=== PATIENT | female | born 1945 | race Hispanic/Latino ===

== ENCOUNTER 2018-09-10 22:14 | Inpatient (IN) | payer MEDICARE, OTHER ==
[2018-09-10 22:20] VITALS: BMI 25.9
[2018-09-10] MEDS ORDERED: Iodixanol 320 MG/ML 100 ML BOTTLE IV ONE (22:27)
[2018-09-10 22:33] LABS: BASO # 0.1 K/uL (0.0-0.2); BASO % 0.7 % (0.0-2.0); EOS % 0.1 % (0.0-4.0); LYMPH # 2.2 K/uL (1.0-4.3); LYMPH % 15.2 % (20.0-40.0); MEAN CELL VOLUME 87.8 fL (81.0-99.0); MEAN CORPUSCULAR HEMOGLOBIN 29.8 pg (27.0-31.0); MEAN CORPUSCULAR HGB CONC 33.9 g/dL (33.0-37.0); MEAN PLATELET VOLUME 6.8 fL (7.2-11.7); MONO # 1.1 K/uL (0.0-0.8); MONO % 7.9 % (0.0-10.0); NEUT # 11.1 K/uL (1.8-7.0); NEUT % 76.1 % (50.0-75.0); RBC 4.71 Mil/uL (3.80-5.20); RED CELL DISTRIBUTION WIDTH 13.9 % (11.5-14.5); WHITE BLOOD COUNT 14.6 K/uL (4.8-10.8)
[2018-09-10 22:49] LABS: ALB/GLOB RATIO 1.5 (1.0-2.1); ALBUMIN 4.5 g/dL (3.5-5.0); ALT/SGPT 13 U/L (9-52); AST/SGOT 49 U/L (14-36); BLOOD UREA NITROGEN 18 mg/dL (7-17); CALCIUM 9.5 mg/dl (8.6-10.4); GFR NON-AFRICAN AMERICAN > 60; HDL CHOLESTEROL 54 mg/dL (30-70)
[2018-09-10 22:52] LABS: INR 1.2; PROTHROMBIN TIME 13.1 SECONDS (9.7-12.2)
[2018-09-10 23:00] LABS: LDL CHOLESTEROL 83 mg/dL (0-129)
[2018-09-10] MEDS ORDERED: Sodium Chloride 0.9% 1,000 ML ONE (23:14)
[2018-09-10] MEDS: Sodium Chloride 0.9% 1,000 ML IV SCH (23:22)
--- NOTE | 2018-09-10 23:37 | C.PDOC ---
History Of Present Illness 73 year old female came in as a code stroke. Patient lives at home alone, neighbor noticed she had slurred speech and aphasia, EMS was called. Patient is unable to give further Hx due to slurred speech and aphasia. She is able to move all her extremities, when asked if she has pain or other complaints she is able to shake her head no. Patient can say her name and say she is in [place] but still has slurred speech. Neighbor found her at 6:30-7pm but last well time is unknown. Patient has no Hx of stroke, use of blood thinners, or use of aspirin. Time Seen by Provider: 09/10/18 22:19 Chief Complaint (Nursing): Altered Mental Status History Per: EMS History/Exam Limitations: None Onset/Duration Of Symptoms: Unknown Onset Of Symptoms: Cannot Confirm Onset Current Symptoms Are (Timing): Still Present Usual Baseline: Alert Oriented Exacerbating Factor(s): Unknown Use Of Anticoag/Antiplatelets: No Speech Is: Slurred Past Medical History Reviewed: Historical Data, Nursing Documentation, Vital Signs Vital Signs: Last Vital Signs Temp 99.5 F 09/10/18 22:21 Pulse 104 H 09/10/18 22:53 Resp 20 09/10/18 22:53 BP 153/97 H 09/10/18 22:53 Pulse Ox 100 09/10/18 22:18 - Medical History PMH: Anxiety, Asthma, Depression, Gall Bladder Disease (cholecystectomy), Hypercholesterolemia, Schizophrenia Denies: Chronic Kidney Disease Surgical History: Cholecystectomy Family History: States: Unknown Family Hx - Social History Hx Alcohol Use: No Hx Substance Use: No - Immunization History Hx Tetanus Toxoid Vaccination: No Hx Influenza Vaccination: No Hx Pneumococcal Vaccination: No Review Of Systems Review Of Systems: ROS cannot be obtained secondary to pt's inabilty to answer questions. Physical Exam - Physical Exam Appears: Non-toxic Skin: Normal Color, Warm Head: Atraumatic, Normacephalic, Other (No facial droop) Eye(s): bilateral: Normal Inspection, PERRL, EOMI Oral Mucosa: Moist Neck: Normal, Supple Chest: Symmetrical, No Tenderness Cardiovascular: Rhythm Regular Respiratory: Normal Breath Sounds, No Rales, No Rhonchi, No Wheezing Gastrointestinal/Abdominal: Soft, No Tenderness Extremity: Other (Bilateral arms and legs with 5/5 strength, no drift.) Neurological/Psych: Other (Orientedx2, cannot say when it is but unsure if this is due to aphasia.) ED Course And Treatment - Laboratory Results Result Diagrams: 09/10/18 22:26 09/10/18 22:26 Lab Results: PT 13.1 SECONDS (9.7-12.2) H 09/10/18 22:26 INR 1.2 09/10/18 22: APTT 32 SECONDS (21-34) 09/10/18 22: Troponin I < 0.0120 ng/mL (0.00-0.120) 09/10/18 22: Total Bilirubin 0.8 mg/dL (0.2-1.3) 09/10/18 22: AST 49 U/L (14-36) H D 09/10/18 22: ALT 13 U/L (9-52) 09/10/18 22: Alkaline Phosphatase 91 U/L (38-126) 09/10/18 22:26 Total Protein 7.5 g/dL (6.3-8.3) 09/10/18 22: Albumin 4.5 g/dL (3.5-5.0) 09/10/18 22: Globulin 3.0 gm/dL (2.2-3.9) 09/10/18: Albumin/Globulin Ratio 1.5 (1.0-2.1) 09/10/18 22:26 ECG: Interpreted By [place] ECG Rhythm: Sinus Tachycardia Interpretation Of ECG: normal axis, normal intervals, no ST/T changes Rate From EC O2 Sat by Pulse Oximetry: 100 (Room air) Pulse Ox Interpretation: Normal - CT Scan/US CT Head Other Rad Studies (CT/US): Read By Radiologist, Radiology Report Reviewed CT/US Interpretation: EXAM: CT Head without Intravenous Contrast. CLINICAL HISTORY: Code stroke. TECHNIQUE: Axial computed tomography images of the head/brain without intravenous contrast. CONTRAST: Without. COMPARISON: None provided. FINDINGS: BRAIN. Chronic periventricular and subcortical microvascular disease is seen. Bilateral basal ganglia enlarged perivascular spaces. VENTRICLES: There is generalized parenchymal atrophy noted as demonstrated by symmetrical dilatation of ventricles and sulci. ORBITS: The orbits are unremarkable. SINUSES AND MASTOIDS: The paranasal sinuses and mastoid air cells are clear. BONES: No fracture. MISCELLANEOUS: No acute intracranial pathology. IMPRESSION: 1. There is generalized parenchymal atrophy noted as demonstrated by symmetrical dilatation of ventricles and sulci. 2. Chronic periventricular and subcortical microvascular disease is seen. 3. Bilateral basal ganglia enlarged perivascular spaces. 4. No acute intracranial pathology. Critical Care Time - Critical Care Note Total Time (in mins): 30 Documented critical care: time excludes all time spent performing seperately billable procedures. NIHSS Stroke Scale - Date/Time Evaluation Performed Time Performed: 22:15 When Was NIHSS Performed: Baseline - How Severe is the Stoke Level of Consciousness: 0=Alert LOC to Questions: 0=Both comments correct LOC to commands: 0=Obeys both correctly Best Gaze: 0=Normal Visual: 0=No visual loss Facial: 0=Normal Motor Arm - Left: 0=No drift Motor Arm - Right: 0=No drift Motor Leg - Left: 2=Falls before 5 sec Motor Leg - Right: 2=Falls before 5 sec Limb Ataxia: 0=Absent Sensory: 0=Normal Best Language: 2=Severe aphasia Dysarthia: 2=Severe, near unintelligible or worse Extinction & Inattention (Neglect): 0=Normal, no object Score: 8 Medical Decision Making Medical Decision Making: Plan: * CTA * CT Head * EKG * Blood work * CXR * Aspirin * IV fluids Patient called as a code stroke upon arrival. Patient evaluated and went immediately to CT. CT result noted. Case discussed with Dr. Boothe, neurologist salon stylist. Patient not a candidate for tPA given unknown last normal time. For now can give ASA and admit to telemetry. CTA performed as well, no vessel occlusion noted. ASA 300mg MO given. Case discussed with Dr. Mohan, medicine salon stylist. Accepts patient to his service. Case discussed with certified medical coding specialist. Disposition - Disposition Disposition: HOSPITALIZED Disposition Time: 00:30 Condition: FAIR - Clinical Impression Clinical Impression: CVA (cerebral vascular accident), Aphasia - Scribe Statement The provider has reviewed the documentation as recorded by the Scribanabelle Moya All medical record entries made by the Scribe were at my direction and personally dictated by me. I have reviewed the chart and agree that the record accurately reflects my personal performance of the history, physical exam, medical decision making, and the department course for this patient. I have also personally directed, reviewed, and agree with the discharge instructions and disposition.
--- NOTE | 2018-09-11 00:46 | CP.PCM.HP ---
History of Present Illness - History of Present Illness History of Present Illness: cc: "slurred speech" Patient is a 73 year old female with a PMH hypertension, hyperlipidemia, asthma, schizophrenia, anxiety, depression, NPH dementia presents today for Code stroke with slurred speech. Her last known normal was two days ago. Neighbor who comes to check on her noticed today her speech was slurred and she was having generalized weakness. She is able to move all extremities and nods/shakes her head appropriately to yes/no questions. Denies pain, history of stroke, use of blood thinners. She can understandably state her name and location, but has difficulty enunciating words greater than 3 syllables. She remembers eating dinner around 5 with no difficulty. Friend discovered her around 7:30pm. PMH: HTN, HLD, asthma, schizophrenia, anxiety, depression, NPH dementia Med: Cogentin 2mg po daily, Ativan 0.5mg po daily, Olanzapine 10mg po daily, Respiridone 2mg po daily, Simvastatin 10mg po QD6 All: NKDA PSxHx: Cholecystectomy, C/section, L cataract removal FamHx: unknown SocHx: denies tobacco, alcohol, illicit drug use. Lives with sister. Worked as a [employer] Present on Admission - Present on Admission Any Indicators Present on Admission: No Review of Systems - Constitutional Constitutional: absent: Chills, Fever, Headache, Weight Gain, Weight Loss, Weakness - EENT Eyes: absent: Blurred Vision, Change in Vision, Diplopia Ears: absent: Decreased Hearing, Tinnitus, Dizziness Nose/Mouth/Throat: absent: Sore Throat - Cardiovascular Cardiovascular: absent: Chest Pain - Respiratory Respiratory: absent: Cough, Dyspnea, Wheezing - Gastrointestinal Gastrointestinal: absent: Abdominal Pain, Constipation, Diarrhea, Nausea, Vomiting - Genitourinary Genitourinary: absent: Dysuria, Urinary Frequency, Urinary Urgency - Integumentary Integumentary: absent: Rash Past Patient History - Infectious Disease Hx of Infectious Diseases: None - Past Medical History & Family History Past Medical History?: Yes - Past Social History Smoking Status: Never Smoked Alcohol: None Drugs: Denies Home Situation {Lives}: With Family - CARDIAC Hx Hypercholesterolemia: Yes - PULMONARY Hx Asthma: Yes - NEUROLOGICAL Hx Neurological Disorder: Yes Hx Dizziness: Yes Hx Syncope: Yes - HEENT Hx HEENT Problems: Yes Hx Cataracts: Yes (right and left eye) - RENAL Hx Chronic Kidney Disease: No - ENDOCRINE/METABOLIC Hx Endocrine Disorders: No - HEMATOLOGICAL/ONCOLOGICAL Hx Blood Disorders: No - INTEGUMENTARY Hx Dermatological Problems: No - MUSCULOSKELETAL/RHEUMATOLOGICAL Hx Musculoskeletal Disorders: No - GASTROINTESTINAL Hx Gall Bladder Disease: Yes (cholecystectomy) - GENITOURINARY/GYNECOLOGICAL Hx Genitourinary Disorders: No - PSYCHIATRIC Hx Anxiety: Yes Hx Depression: Yes Hx Schizophrenia: Yes Hx Substance Use: No - SURGICAL HISTORY Hx Cholecystectomy: Yes - ANESTHESIA Hx Anesthesia: Yes Hx Anesthesia Reactions: No Meds Allergies/Adverse Reactions: Allergies Allergy/AdvReac Type Severity Reaction Status Date / Time No Known Allergies Allergy Verified 09/10/18 22:21 Physical Exam - Constitutional Appears: Well, No Acute Distress - Head Exam Head Exam: ATRAUMATIC, NORMOCEPHALIC - Eye Exam Eye Exam: EOMI, Normal appearance, PERRL Pupil Exam: NORMAL ACCOMODATION - ENT Exam ENT Exam: Mucous Membranes Moist Additional comments: slight facial droop on L side - Neck Exam Neck exam: Positive for: Normal Inspection - Respiratory Exam Respiratory Exam: Clear to Auscultation Bilateral, NORMAL BREATHING PATTERN. absent: Rales, Rhonchi, Wheezes - Cardiovascular Exam Cardiovascular Exam: Tachycardia, +S1, +S2 - GI/Abdominal Exam GI & Abdominal Exam: Normal Bowel Sounds, Soft. absent: Tenderness - Extremities Exam Extremities exam: Positive for: normal capillary refill, pedal pulses present. Negative for: joint swelling - Back Exam Back exam: absent: CVA tenderness (L), CVA tenderness (R) - Neurological Exam Neurological exam: Alert, Oriented x3 Additional comments: hyperreflexia muscle strength weaker on R facial drooping - Psychiatric Exam Psychiatric exam: Anxious - Skin Skin Exam: Dry, Normal Color, Warm Results - Vital Signs Recent Vital Signs: Last Vital Signs Temp 99.5 F 09/10/18 22:21 Pulse 96 H 09/11/18 00:36 Resp 15 09/11/18 00:36 BP 142/82 09/11/18 00:36 Pulse Ox 99 09/11/18 00:36 - Labs Result Diagrams: 09/11/18 04:02 09/11/18 04:02 Labs: Laboratory Results - last 24 hr 09/10/18 09/10/18 09/10/18 22:17 22:26 22:26 WBC 14.6 H RBC 4.71 Hgb 14.0 Hct 41.3 MCV 87.8 MCH 29.8 MCHC 33.9 RDW 13.9 Plt Count 391 MPV 6.8 L Neut % (Auto) 76.1 H Lymph % (Auto) 15.2 L Roberts % (Auto) 7.9 Eos % (Auto) 0.1 Baso % (Auto) 0.7 Neut # (Auto) 11.1 H Lymph # (Auto) 2.2 Roberts # (Auto) 1.1 H Eos # (Auto) 0.0 Baso # (Auto) 0.1 PT 13.1 H INR 1.2 APTT 32 Sodium Potassium Chloride Carbon Dioxide Anion Gap BUN Creatinine Est GFR ( Amer) Est GFR (Non-Af Amer) POC Glucose (mg/dL) 129 H Random Glucose Hemoglobin A1c Calcium Total Bilirubin AST ALT Alkaline Phosphatase Troponin I Total Protein Albumin Globulin Albumin/Globulin Ratio Triglycerides Cholesterol LDL Cholesterol Direct HDL Cholesterol Blood Type Antibody Screen 09/10/18 09/10/18 09/10/18 22:26 22:26 22:26 WBC RBC Hgb Hct MCV MCH MCHC RDW Plt Count MPV Neut % (Auto) Lymph % (Auto) Roberts % (Auto) Eos % (Auto) Baso % (Auto) Neut # (Auto) Lymph # (Auto) Roberts # (Auto) Eos # (Auto) Baso # (Auto) PT INR APTT Sodium 127 L Potassium 3.3 L Chloride 95 L Carbon Dioxide 20 L Anion Gap 16 BUN 18 H Creatinine 0.7 Est GFR ( Amer) > 60 Est GFR (Non-Af Amer) > 60 POC Glucose (mg/dL) Random Glucose 130 H Hemoglobin A1c 6.0 Calcium 9.5 Total Bilirubin 0.8 AST 49 H D ALT 13 Alkaline Phosphatase 91 Troponin I < 0.0120 Total Protein 7.5 Albumin 4.5 Globulin 3.0 Albumin/Globulin Ratio 1.5 Triglycerides 100 Cholesterol 155 LDL Cholesterol Direct 83 HDL Cholesterol 54 Blood Type O NEGATIVE Antibody Screen Negative Assessment & Plan - Assessment and Plan (Free Text) Assessment: 73yo F PMH HTN, HLD, asthma, schizophrenia, anxiety, depression, NPH dementia admitted for sudden onset of slurred speech. Code Stroke called. Plan: Slurred Speech Code Stroke CXR (09/10): negative CT Head without contrast (09/10): negative CTA Head and Neck (09/10): pending read Patient is out of window for tPA - home Simvastatin 10mg -> Crestor 5mg po HS - ASA 300mg [place] daily - NS@100 - Neuro consulted: Dr. Boothe - help appreciated Dementia - home Cogentin 2mg po daily Schizophrenia Anxiety/Depression - home Olanzapine 10mg po daily - home Risperidone 2mg po daily - home Ativan held 2/2 AMS PPx - DVT: SCDs - PT/OT - swallow study prior to diet orders d/w Dr. Marques Saldaña PGY-1 - Date & Time Date: 09/11/18 Time: 01:00 NIHSS Stroke Scale - Date/Time Evaluation Performed Date Performed: 09/11/18 Time Performed: 01:00 - How Severe is the Stoke Level of Consciousness: 0=Alert LOC to Questions: 1=One correct LOC to commands: 0=Obeys both correctly Best Gaze: 0=Normal Visual: 0=No visual loss Facial: 0=Normal Motor Arm - Left: 0=No drift Motor Arm - Right: 0=No drift Motor Leg - Left: 0=No drift Motor Leg - Right: 0=No drift Limb Ataxia: 2=Present both Sensory: 0=Normal Best Language: 2=Severe aphasia Dysarthia: 1=Mild to moderate slurring Extinction & Inattention (Neglect): 0=Normal, no object Score: 6
[2018-09-11 04:06] LABS: BASO # 0.1 K/uL (0.0-0.2); BASO % 0.9 % (0.0-2.0); EOS % 0.1 % (0.0-4.0); HEMOGLOBIN 13.7 g/dL (11.0-16.0); LYMPH # 1.5 K/uL (1.0-4.3); LYMPH % 9.7 % (20.0-40.0); MEAN CELL VOLUME 88.1 fL (81.0-99.0); MEAN CORPUSCULAR HGB CONC 34.1 g/dL (33.0-37.0); MEAN PLATELET VOLUME 6.8 fL (7.2-11.7); MONO # 1.1 K/uL (0.0-0.8); MONO % 6.8 % (0.0-10.0); NEUT # 12.8 K/uL (1.8-7.0); NEUT % 82.5 % (50.0-75.0); PLATELET COUNT 369 K/uL (130-400); RBC 4.57 Mil/uL (3.80-5.20); RED CELL DISTRIBUTION WIDTH 13.6 % (11.5-14.5); WHITE BLOOD COUNT 15.5 K/uL (4.8-10.8)
[2018-09-11 05:10] VITALS: RESP 20
[2018-09-11 05:36] LABS: LYMPHOCYTE 10 % (20-40); MONOCYTE 3 % (0-10); NEUTROPHIL 87 % (50-75); TOTAL CELLS COUNTED 100
[2018-09-11 05:37] LABS: PLATELET ESTIMATE NORMAL (NORMAL)
[2018-09-11 06:16] LABS: ALB/GLOB RATIO 1.4 (1.0-2.1); ALBUMIN 4.1 g/dL (3.5-5.0); ALT/SGPT 26 U/L (9-52); AST/SGOT 33 U/L (14-36); BLOOD UREA NITROGEN 13 mg/dL (7-17); GFR NON-AFRICAN AMERICAN > 60
[2018-09-11] MEDS: Sodium Chloride 0.9% 1,000 ML IV SCH ×3 (08:44→19:00)
--- NOTE | 2018-09-11 09:08 | CT ---
Date of service: 09/10/2018 PROCEDURE: CT HEAD WITHOUT CONTRAST. HISTORY: Code Stroke COMPARISON: None available. TECHNIQUE: Axial computed tomography images were obtained through the head/brain without intravenous contrast. Radiation dose: Total exam DLP = 1154.64 mGy-cm. This CT exam was performed using one or more of the following dose reduction techniques: Automated exposure control, adjustment of the mA and/or kV according to patient size, and/or use of iterative reconstruction technique. FINDINGS: HEMORRHAGE: No intracranial hemorrhage. BRAIN: No mass effect or edema. Central greater than peripheral atrophy consistent with patient age. VENTRICLES: Minimal ex vacuo ventricular dilatation secondary to surrounding parenchymal atrophy. CALVARIUM: Unremarkable. PARANASAL SINUSES: Unremarkable as visualized. No significant inflammatory changes. MASTOID AIR CELLS: Unremarkable as visualized. No inflammatory changes. OTHER FINDINGS: None. IMPRESSION: No intracranial mass, hemorrhage or evidence of acute infarct. Mild atrophy. Otherwise unremarkable. The preliminary findings for this examination were reported by [facility] at 10:41 p.m. on 09/10/2018. There is concurrence of this report with the preliminary findings.
--- NOTE | 2018-09-11 09:11 | CP.PCM.CON ---
History of Present Illness - History of Present Illness History of Present Illness: Sagar Matias DO, PGY-2: Neurology Consult Note for Dr. Boothe 73 year old female with a past medical history of normal pressure hydrocephalus, dyslipidemia, and an affective disorder who was brought in by EMS for slurred speech/aphasia noticed by the patient's neighbor around 6:45 PM yesterday. In the ED the patient scored an 8 on the NIH stroke scale. A code stroke was called and the case was discussed with the pathology secretary/transcriptionist Neurohospitalist who deferred the administration of tPA given the onset of the symptoms is unknown. A CT scan of the head was performed that showed no intracranial mass, hemorrhage or evidence of acute infarct. Mild atrophy. At the time of my examination this morning the patient has difficulty initiating speech and appears to have right sided weakness. She reports that the weakness of her right side has been present for over a year now. On a subsequent encounter the patient's close friend is present and brought the patient's home medications. Review of her medications reveals she was recently started on Sinemet for Parkinson's disease. The patient reports she is not taking this medication as prescribed. Otherwise, a 12 point ROS is negative except as mentioned above. PMH: hypertension, dyslipidemia, and parkinson's disease PSH: Denies Allergies: NKA Social: Lives at home, denies alcohol, tobacco, or illicit drug use Review of Systems - Review of Systems All systems: reviewed and no additional remarkable complaints except (as per HPI) Past Patient History - Infectious Disease Hx of Infectious Diseases: None - Past Medical History & Family History Past Medical History?: Yes - Past Social History Smoking Status: Never Smoked - CARDIAC Hx Hypercholesterolemia: Yes - PULMONARY Hx Asthma: Yes - NEUROLOGICAL Hx Neurological Disorder: Yes HX Cerebrovascular Accident: Yes Hx Dizziness: Yes Hx Syncope: Yes - HEENT Hx HEENT Problems: Yes Hx Cataracts: Yes (right and left eye) - RENAL Hx Chronic Kidney Disease: No - ENDOCRINE/METABOLIC Hx Endocrine Disorders: No - HEMATOLOGICAL/ONCOLOGICAL Hx Blood Disorders: No - INTEGUMENTARY Hx Dermatological Problems: No - MUSCULOSKELETAL/RHEUMATOLOGICAL Hx Musculoskeletal Disorders: No Hx Falls: Yes - GASTROINTESTINAL Hx Gall Bladder Disease: Yes (cholecystectomy) - GENITOURINARY/GYNECOLOGICAL Hx Genitourinary Disorders: No - PSYCHIATRIC Hx Anxiety: Yes Hx Depression: Yes Hx Schizophrenia: Yes Hx Substance Use: No - SURGICAL HISTORY Hx Cholecystectomy: Yes - ANESTHESIA Hx Anesthesia: Yes Hx Anesthesia Reactions: No Hx Malignant Hyperthermia: No Meds Allergies/Adverse Reactions: Allergies Allergy/AdvReac Type Severity Reaction Status Date / Time No Known Allergies Allergy Verified 09/10/18 22:21 - Medications Medications: Current Medications Aspirin (Aspirin Supp) 300 mg TX DAILY [facility] Last Admin: 09/10/18 23:25 Dose: 300 mg Benztropine Mesylate (Cogentin) 2 mg PO DAILY [facility] Sodium Chloride (Sodium Chloride 0.9%) 1,000 mls @ 100 mls/hr IV .Q10H [facility] Last Admin: 09/11/18 08:44 Dose: Not Given Olanzapine (Zyprexa) 10 mg PO DAILY [facility] Risperidone (Risperdal Tab) 2 mg PO DAILY [facility] Rosuvastatin Calcium (Crestor) 5 mg PO HS [facility] Physical Exam - Constitutional Appears: Non-toxic, No Acute Distress - Head Exam Head Exam: ATRAUMATIC, NORMOCEPHALIC - Eye Exam Eye Exam: EOMI, Normal appearance - ENT Exam ENT Exam: Mucous Membranes Moist - Neck Exam Neck exam: Positive for: Normal Inspection - Cardiovascular Exam Cardiovascular Exam: RRR, +S1, +S2 - GI/Abdominal Exam GI & Abdominal Exam: Normal Bowel Sounds, Soft - Back Exam Back exam: NORMAL INSPECTION. absent: CVA tenderness (L), CVA tenderness (R) - Neurological Exam Neurological exam: Alert Additional comments: cogwheel rigidity in both UE, patient's has a shuffling gait, voice is hypophonic - Expanded Neurological Exam Expanded Neuro motor strength exam: Left Upper Extremity: 5, Right Upper Extremity: 4, Le ft Lower Extremity: 5, Right Lower Extremity: 4 - Psychiatric Exam Psychiatric exam: Normal Affect, Normal Mood - Skin Skin Exam: Dry, Intact, Normal Color, Warm Results - Vital Signs Recent Vital Signs: Last Vital Signs Temp 98.1 F 09/11/18 08:10 Pulse 80 09/11/18 08:24 Resp 20 09/11/18 08:10 BP 153/84 H 09/11/18 08:10 Pulse Ox 97 09/11/18 08:10 - Labs Result Diagrams: 09/11/18 04:02 09/11/18 04:02 Labs: Laboratory Results - last 24 hr 04/08/19 04/08/19 04/08/19 22:17 22:26 22:26 WBC 14.6 H RBC 4.71 Hgb 14.0 Hct 41.3 MCV 87.8 MCH 29.8 MCHC 33.9 RDW 13.9 Plt Count 391 MPV 6.8 L Neut % (Auto) 76.1 H Lymph % (Auto) 15.2 L Crook % (Auto) 7.9 Eos % (Auto) 0.1 Baso % (Auto) 0.7 Neut # (Auto) 11.1 H Lymph # (Auto) 2.2 Crook # (Auto) 1.1 H Eos # (Auto) 0.0 Baso # (Auto) 0.1 Neutrophils % (Manual) Lymphocytes % (Manual) Monocytes % (Manual) Platelet Estimate PT 13.1 H INR 1.2 APTT 32 Sodium Potassium Chloride Carbon Dioxide Anion Gap BUN Creatinine Est GFR ( Amer) Est GFR (Non-Af Amer) POC Glucose (mg/dL) 129 H Random Glucose Hemoglobin A1c Calcium Phosphorus Magnesium Total Bilirubin AST ALT Alkaline Phosphatase Troponin I Total Protein Albumin Globulin Albumin/Globulin Ratio Triglycerides Cholesterol LDL Cholesterol Direct HDL Cholesterol Blood Type Antibody Screen 09/10/18 09/10/18 09/10/18 22:26 22:26 22:26 WBC RBC Hgb Hct MCV MCH MCHC RDW Plt Count MPV Neut % (Auto) Lymph % (Auto) Crook % (Auto) Eos % (Auto) Baso % (Auto) Neut # (Auto) Lymph # (Auto) Crook # (Auto) Eos # (Auto) Baso # (Auto) Neutrophils % (Manual) Lymphocytes % (Manual) Monocytes % (Manual) Platelet Estimate PT INR APTT Sodium 127 L Potassium 3.3 L Chloride 95 L Carbon Dioxide 20 L Anion Gap 16 BUN 18 H Creatinine 0.7 Est GFR ( Amer) > 60 Est GFR (Non-Af Amer) > 60 POC Glucose (mg/dL) Random Glucose 130 H Hemoglobin A1c 6.0 Calcium 9.5 Phosphorus Magnesium Total Bilirubin 0.8 AST 49 H D ALT 13 Alkaline Phosphatase 91 Troponin I < 0.0120 Total Protein 7.5 Albumin 4.5 Globulin 3.0 Albumin/Globulin Ratio 1.5 Triglycerides 100 Cholesterol 155 LDL Cholesterol Direct 83 HDL Cholesterol 54 Blood Type O NEGATIVE Antibody Screen Negative 09/11/18 09/11/18 09/11/18 04:02 04:02 06:07 WBC 15.5 H RBC 4.57 Hgb 13.7 Hct 40.2 MCV 88.1 MCH 30.0 MCHC 34.1 RDW 13.6 Plt Count 369 MPV 6.8 L Neut % (Auto) 82.5 H Lymph % (Auto) 9.7 L Crook % (Auto) 6.8 Eos % (Auto) 0.1 Baso % (Auto) 0.9 Neut # (Auto) 12.8 H Lymph # (Auto) 1.5 Crook # (Auto) 1.1 H Eos # (Auto) 0.0 Baso # (Auto) 0.1 Neutrophils % (Manual) 87 H Lymphocytes % (Manual) 10 L Monocytes % (Manual) 3 Platelet Estimate Normal PT INR APTT Sodium 131 L Potassium 3.2 L Chloride 96 L Carbon Dioxide 23 Anion Gap 15 BUN 13 Creatinine 0.5 L Est GFR ( Amer) > 60 Est GFR (Non-Af Amer) > 60 POC Glucose (mg/dL) 116 H Random Glucose 126 H Hemoglobin A1c Calcium 9.0 Phosphorus 4.3 Magnesium 2.0 Total Bilirubin 1.1 AST 33 ALT 26 Alkaline Phosphatase 90 Troponin I Total Protein 7.0 Albumin 4.1 Globulin 2.9 Albumin/Globulin Ratio 1.4 Triglycerides Cholesterol LDL Cholesterol Direct HDL Cholesterol Blood Type Antibody Screen Assessment & Plan - Assessment and Plan (Free Text) Assessment: 73 year old female with a past medical history of Parkinson's disease, NPH, hypertension, and an affective disorder who presented to [facility] with concerns of slurred speech/aphasia. CT head was negative for an acute/subacute infarct, as was the MRI of the brain. In view of the patient not taking her Parkinson's medication and having no evidence of stroke on MRI, the patient is likely suffering from Parkinson's disease that was acutely worsened secondary to not taking her medications as prescribed. We will lower the dosage and monitor her response. 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 Case was reviewed and discussed with attending physician, Dr. Boothe
--- NOTE | 2018-09-11 09:52 | RAD ---
Date of service: 09/10/2018 HISTORY: Code Stroke COMPARISON: No prior. TECHNIQUE: 1 view obtained. FINDINGS: LUNGS: No consolidation. Probable 5 mm right lower lung zone pulmonary granuloma. Recommend comparison with any outside chest x-rays to assess stability. PLEURA: No significant pleural effusion identified, no pneumothorax apparent. CARDIOVASCULAR: There is presence of aortic atherosclerotic calcification on x-ray. Normal cardiac size. Top-normal pulmonary vasculature. OSSEOUS STRUCTURES: Thoracic spondylosis. VISUALIZED UPPER ABDOMEN: Hyperdensities left upper abdominal quadrant-possible vascular calcifications left upper abdominal quadrant. OTHER FINDINGS: None. IMPRESSION: No acute cardiopulmonary pathology appreciated. Other findings as above.
[2018-09-11 12:16] LABS: HDL CHOLESTEROL 48 mg/dL (30-70)
[2018-09-11 12:26] LABS: LDL CHOLESTEROL 75 mg/dL (0-129)
--- NOTE | 2018-09-11 13:46 | CP.PCM.PN ---
Subjective - Date & Time of Evaluation Date of Evaluation: 09/11/18 Time of Evaluation: 09:00 - Subjective Subjective: PGY-[address] Mohan service patient is seen and examined at bedside. Patient continues to have difficulty speaking. Neighbor at bedside state her speech has been worsening in the past days, however, patient had speech difficulty in the past. Patient denies any other complaints at this time. As per nurse, patient failed nursing swallow eval, pending speech therapy swallow evaluation to start diet. Objective - Vital Signs/Intake and Output Vital Signs (last 24 hours): Temp Pulse Resp BP Pulse Ox 98.1 F 80 20 153/84 H 97 09/11/18 08:10 09/11/18 08:24 09/11/18 08:10 09/11/18 08:10 09/11/18 08:10 Intake and Output: 09/11/18 09/11/18 06:59 18:59 Intake Total 800 Balance 800 - Medications Medications: Current Medications Aspirin (Aspirin Supp) 300 mg [place] DAILY [facility] Last Admin: 09/11/18 10:18 Dose: 300 mg Benztropine Mesylate (Cogentin) 2 mg PO DAILY [facility] Last Admin: 09/11/18 10:26 Dose: Not Given Carbidopa/Levodopa (Sinemet Cr) 1 tab PO 1200,1600 [facility] Carbidopa/Levodopa (Sinemet Cr) 1 tab PO 0800 [facility] Sodium Chloride (Sodium Chloride 0.9%) 1,000 mls @ 100 mls/hr IV .Q10H [facility] Last Admin: 09/11/18 10:18 Dose: 100 mls/hr Olanzapine (Zyprexa) 10 mg PO DAILY [facility] Last Admin: 09/11/18 10:26 Dose: Not Given Pneumococcal Polyvalent Vaccine (Pneumovax 23 Vaccine) 0.5 ml IM .ONCE ONE Stop: 09/12/18 10:01 Risperidone (Risperdal Tab) 2 mg PO DAILY [facility] Last Admin: 09/11/18 10:26 Dose: Not Given Rosuvastatin Calcium (Crestor) 5 mg PO HS [facility] - Labs Labs: 09/11/18 04:02 09/11/18 04:02 PT 13.1 SECONDS (9.7-12.2) H 09/10/18 22:26 INR 1.2 09/10/18 22:26 APTT 32 SECONDS (21-34) 09/10/18 22:26 - Constitutional Appears: Non-toxic, No Acute Distress - Head Exam Head Exam: ATRAUMATIC, NORMOCEPHALIC - Eye Exam Eye Exam: EOMI, Normal appearance - ENT Exam ENT Exam: Mucous Membranes Moist - Cardiovascular Exam Cardiovascular Exam: REGULAR RHYTHM, +S1, +S2 - GI/Abdominal Exam GI & Abdominal Exam: Soft, Normal Bowel Sounds. absent: Distended, Tenderness - Extremities Exam Extremities Exam: Normal Inspection. absent: Tenderness - Back Exam Back Exam: NORMAL INSPECTION - Neurological Exam Neurological Exam: Alert, Awake Neuro motor strength exam: Left Upper Extremity: 5, Right Upper Extremity: 4, Left Lower Extremity: 5, Right Lower Extremity: 5 Additional comments: Slurred speech facial drooping left side hypereflexia left and right upper extremities - Psychiatric Exam Psychiatric exam: Normal Affect, Normal Mood - Skin Skin Exam: Dry, Intact, Normal Color, Warm Assessment and Plan - Assessment and Plan (Free Text) Assessment: 73yo F PMH HTN, HLD, asthma, schizophrenia, anxiety, depression, NPH dementia admitted for sudden onset of slurred speech. Code Stroke called. 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 Boothe - help appreciated - Speech therapy Swallow eval - pending eval to start patient on a diet - will follow up Hypokalemia - K in am 3.4 - KCL 20meq IVPB x 1 - monitor CBC, replete as needed Parkinson's disease - As per neuro, Sinemet 50/200 at 8:00 and 25/100 12:00 and 16:00 - Follow up neuro recs Dementia - home Cogentin 2mg po daily Hx of Schizophrenia HX Anxiety/Depression - Olanzapine 10mg po daily - Risperidone 2mg po daily - sertraline 100mg po daily HX of HTN - HCTZ 12.5mg po daily - continue to monitor BP PPx - DVT: SCDs - PT/OT - swallow study prior to diet orders plan discussed with Dr Marques Uriostegui, PGY-1
--- NOTE | 2018-09-11 13:59 | CT ---
Date of service: 09/10/2018 PROCEDURE: CTA HEAD AND NECK WITH CONTRAST HISTORY: cva COMPARISON: None available. TECHNIQUE: Initial noncontrast head CT was performed. Subsequently, CT angiogram of the head and neck were performed after the intravenous administration of 80 mL of Omnipaque 350. Contiguous 1.5mm thick images were obtained in the axial plane of the neck. 2-D coronal and sagittal MPR images were obtained. Imaging postprocessing was performed with 3-D images also obtained. A delayed contrast head CT was also obtained. This CT exam was performed using one or more of the following dose reduction techniques: Automated exposure control, adjustment of the mA and/or kV according to patient size, and/or use of iterative reconstruction technique. Contrast dose: 100 mL Visipaque 320 Radiation dose: Total exam DLP = 509.90 mGy-cm. FINDINGS: HEAD: Right: The intracranial internal carotid artery, and anterior and middle cerebral arteries are widely patent. 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 Posterior circulation: The visualized intracranial vertebral arteries, basilar artery and posterior cerebral arteries are widely patent. There is no endoluminal filling defect to suggest thrombus. There is no intracranial saccular aneurysm. NECK: There is a three vessel aortic arch. There is no stenosis at the origins of the great vessels at the level of the aortic arch. No atherosclerotic calcification or mural plaque present. Right Carotid: On the right, the common carotid, internal carotid and external carotid arteries are widely patent. There is no hemodynamically significant stenosis in the internal carotid artery by NASCET criteria. Left Carotid: On the left, the common carotid, internal carotid and external carotid arteries are widely patent. There is no hemodynamically significant stenosis in the internal carotid artery by NASCET criteria. The vertebral arteries are widely patent. The visualized soft tissues of the neck are normal. The visualized brain and cervical spine are within normal limits. The lung apices are clear. IMPRESSION: 1. No evidence of endoluminal thrombus,occlusion or definite significant stenosis in the intracranial arteries. 2. No evidence of hemodynamically significant stenosis in the internal carotid arteries. 3. Patent bilateral vertebral arteries.
--- NOTE | 2018-09-11 14:08 | MRI ---
Date of service: 09/11/2018 PROCEDURE: MRI BRAIN WITHOUT CONTRAST HISTORY: left sided weakness, slurred speech COMPARISON: CT head without contrast from 09/10/2018. TECHNIQUE: Multiplanar, multisequence MR images of the brain were obtained without intravenous contrast enhancement. FINDINGS: HEMORRHAGE: None DWI: No evidence of an acute or early subacute infarction. BRAIN PARENCHYMA: There are mild chronic microangiopathic changes. There is no mass, mass effect or abnormal extra-axial fluid collection. There is a 7 mm left sided quadrigeminal plate cistern lipoma. The midline sagittal structures are normal. VENTRICLES: There is mild age-related global parenchymal volume loss and proportionate enlargement of the ventricles and cortical sulci. There are prominent perivascular spaces in bilateral basal ganglia. CRANIUM: There is normal bone marrow signal pattern. ORBITS: Normal in appearance. PARANASAL SINUSES/MASTOIDS: Predominantly clear. VASCULAR SYSTEM: There are normal signal voids in the larger intracranial arteries. OTHER FINDINGS: None. IMPRESSION: 1. No acute intracranial abnormality. 2. 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 3. Mild chronic microangiopathic changes and mild age-related global parenchymal volume loss.
[2018-09-11] MEDS ORDERED: Carbidopa/Levodopa 25/100 CR PO SCH (16:00)
[2018-09-11] MEDS: Dextrose 5%/0.45% NS 1,000 ML IV SCH (20:00)
--- NOTE | 2018-09-12 07:25 | CP.PCM.PN ---
Subjective - Date & Time of Evaluation Date of Evaluation: 09/12/18 Time of Evaluation: 07:25 - Subjective Subjective: Medicine progress note for Dr. Mohan. Patient seen and examined at bedside. Patient lying in bed comfortably. Patient offers no complaints. Patient denies headaches, vision changes, chest pain, SOB, nausea, vomiting. Pt tolerating diet with no issues. Objective - Vital Signs/Intake and Output Vital Signs (last 24 hours): Temp Pulse Resp BP Pulse Ox 98.1 F 80 20 152/81 H 98 09/12/18 02:00 09/12/18 02:00 09/12/18 02:00 09/12/18 02:00 09/12/18 02:00 - Medications Medications: Current Medications Aspirin (Aspirin Supp) 300 mg SC DAILY [facility] Last Admin: 09/11/18 10:18 Dose: 300 mg Benztropine Mesylate (Cogentin) 2 mg PO DAILY [facility] Last Admin: 09/11/18 10:26 Dose: Not Given Carbidopa/Levodopa (Sinemet Cr) 2 tab PO 0800 [facility] Carbidopa/Levodopa (Sinemet) 1 tab PO 1200,1600 [facility] Last Admin: 09/11/18 17:00 Dose: Not Given Hydrochlorothiazide (Microzide) 12.5 mg PO DAILY [facility] Dextrose/Sodium Chloride (Dextrose 5%/0.45% Ns 1000 Ml) 1,000 mls @ 100 mls/hr IV .Q10H [facility] Last Admin: 09/11/18 20:00 Dose: 100 mls/hr Olanzapine (Zyprexa) 10 mg PO DAILY [facility] Last Admin: 09/11/18 10:26 Dose: Not Given Pneumococcal Polyvalent Vaccine (Pneumovax 23 Vaccine) 0.5 ml IM .ONCE ONE Stop: 09/12/18 10:01 Risperidone (Risperdal Tab) 2 mg PO DAILY [facility] Last Admin: 09/11/18 10:26 Dose: Not Given Rosuvastatin Calcium (Crestor) 5 mg PO HS [facility] Last Admin: 09/11/18 22:57 Dose: 5 mg Sertraline HCl (Zoloft) 100 mg PO DAILY [facility] - Labs Labs: 09/11/18 04:02 09/11/18 04:02 PT 13.1 SECONDS (9.7-12.2) H 09/10/18 22:26 INR 1.2 09/10/18 22:26 APTT 32 SECONDS (21-34) 09/10/18 22:26 - Constitutional Appears: Non-toxic, No Acute Distress - Head Exam Head Exam: NORMAL INSPECTION - Eye Exam Eye Exam: Normal appearance - ENT Exam ENT Exam: Mucous Membranes Moist - Respiratory Exam Respiratory Exam: Clear to Ausculation Bilateral, NORMAL BREATHING PATTERN. absent: Rales, Rhonchi, Wheezes - Cardiovascular Exam Cardiovascular Exam: +S1, +S2. absent: Murmur - GI/Abdominal Exam GI & Abdominal Exam: Soft, Normal Bowel Sounds. absent: Firm, Guarding, Rigid - Extremities Exam Extremities Exam: Full ROM, Normal Inspection Additional comments: cogwheel rigidity, greater R > L - Back Exam Back Exam: absent: CVA tenderness (L), CVA tenderness (R) - Neurological Exam Neurological Exam: Alert, Awake, Oriented x3 - Psychiatric Exam Psychiatric exam: Normal Affect, Normal Mood - Skin Skin Exam: Dry, Intact, Normal Color, Warm Assessment and Plan - Assessment and Plan (Free Text) Assessment: 73yo F PMH HTN, HLD, asthma, schizophrenia, anxiety, depression, NPH dementia admitted for sudden onset of slurred speech. Code Stroke called. 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
[2018-09-12] MEDS: Dextrose 5%/0.45% NS 1,000 ML IV SCH ×3 (07:41→18:24)
[2018-09-12] MEDS ORDERED: Carbidopa/Levodopa 25/100 CR PO SCH (08:00)
[2018-09-12 08:09] LABS: BASO % 0.5 % (0.0-2.0); EOS # 0.1 K/uL (0.0-0.7); EOS % 0.9 % (0.0-4.0); HEMOGLOBIN 13.5 g/dL (11.0-16.0); LYMPH % 15.9 % (20.0-40.0); MEAN CELL VOLUME 89.3 fL (81.0-99.0); MEAN CORPUSCULAR HGB CONC 34.7 g/dL (33.0-37.0); MONO # 0.5 K/uL (0.0-0.8); MONO % 8.6 % (0.0-10.0); NEUT # 4.7 K/uL (1.8-7.0); NEUT % 74.1 % (50.0-75.0); RBC 4.37 Mil/uL (3.80-5.20)
[2018-09-12 08:12] LABS: WHITE BLOOD COUNT 6.4 K/uL (4.8-10.8)
[2018-09-12 08:26] LABS: ALB/GLOB RATIO 1.4 (1.0-2.1); ALBUMIN 3.8 g/dL (3.5-5.0); ALT/SGPT 23 U/L (9-52); AST/SGOT 37 U/L (14-36); BLOOD UREA NITROGEN 6 mg/dL (7-17); CALCIUM 8.7 mg/dl (8.6-10.4); GFR NON-AFRICAN AMERICAN > 60
[2018-09-12] MEDS ORDERED: Potassium Chloride 20 mEq ER Tab PO ONE (08:55)
[2018-09-12] MEDS ORDERED: Pneumococcal 23-Valent Vaccine IM ONE (10:00)
--- NOTE | 2018-09-12 13:53 | CP.PCM.PN ---
Subjective - Date & Time of Evaluation Date of Evaluation: 09/12/18 Time of Evaluation: 13:50 - Subjective Subjective: Sagar Matias DO, PGY-2: Neurology Progress Note for Dr. Boothe Patient was seen and examined at bedside. Patients speech appears improved. She denies any weakness. Her friend is also at the bedside and asked if the patent had a stroke. We informed both the patient and her friend that she did not suffer from a stroke. Otherwise, no adverse events noted overnight. Case was discussed with primary team as well. Objective - Vital Signs/Intake and Output Vital Signs (last 24 hours): Temp Pulse Resp BP Pulse Ox 98.0 F 74 20 155/84 H 99 09/12/18 07:00 09/12/18 08:39 09/12/18 07:00 09/12/18 07:00 09/12/18 07:00 - Medications Medications: Current Medications Aspirin (Ecotrin) 81 mg PO DAILY [facility] Last Admin: 09/12/18 10:47 Dose: 81 mg Benztropine Mesylate (Cogentin) 2 mg PO DAILY [facility] Last Admin: 09/12/18 09:18 Dose: 2 mg Carbidopa/Levodopa (Sinemet) 1 tab PO 0700 [facility] Carbidopa/Levodopa (Sinemet Cr) 2 tab PO 0700 [facility] Carbidopa/Levodopa (Sinemet Cr) 1 tab PO 1200 [facility] Carbidopa/Levodopa (Sinemet) 1 tab PO 1600 [facility] Hydrochlorothiazide (Microzide) 12.5 mg PO DAILY [facility] Last Admin: 09/12/18 09:18 Dose: 12.5 mg Dextrose/Sodium Chloride (Dextrose 5%/0.45% Ns 1000 Ml) 1,000 mls @ 100 mls/hr IV .Q10H [facility] Last Admin: 09/12/18 07:41 Dose: Not Given Olanzapine (Zyprexa) 10 mg PO DAILY [facility] Last Admin: 09/12/18 09:18 Dose: 10 mg Risperidone (Risperdal Tab) 2 mg PO DAILY [facility] Last Admin: 09/12/18 09:18 Dose: 2 mg Rosuvastatin Calcium (Crestor) 5 mg PO HS [facility] Last Admin: 09/11/18 22:57 Dose: 5 mg Sertraline HCl (Zoloft) 100 mg PO DAILY [facility] Last Admin: 09/12/18 09:18 Dose: 100 mg - Labs Labs: 09/12/18 08:03 09/12/18 08:03 PT 13.1 SECONDS (9.7-12.2) H 09/10/18 22:26 INR 1.2 09/10/18 22:26 APTT 32 SECONDS (21-34) 09/10/18 22:26 - Constitutional Appears: Well, Non-toxic - Head Exam Head Exam: ATRAUMATIC, NORMOCEPHALIC - Eye Exam Eye Exam: EOMI, Normal appearance - ENT Exam ENT Exam: Mucous Membranes Moist - Neck Exam Neck Exam: Normal Inspection - Respiratory Exam Respiratory Exam: Clear to Ausculation Bilateral, NORMAL BREATHING PATTERN. absent: Accessory Muscle Use - Cardiovascular Exam Cardiovascular Exam: RRR, +S1, +S2 - Neurological Exam Neurological Exam: Alert, Awake, Oriented x3 Neuro motor strength exam: Left Upper Extremity: 4, Right Upper Extremity: 4, Left Lower Extremity: 4, Right Lower Extremity: 4 Additional comments: gait deferred, cogwheel rigidity diminished compared to yesterday - Psychiatric Exam Psychiatric exam: Normal Affect, Normal Mood - Skin Skin Exam: Dry, Intact, Normal Color, Warm Assessment and Plan - Assessment and Plan (Free Text) Assessment: 73 year old female with a past medical history of Parkinson's disease, NPH, hypertension, and an affective disorder who presented to [facility] with concerns of slurred speech/aphasia. CT head was negative for an acute/subacute infarct, as was the MRI of the brain. In view of the patient not taking her Parkinson's medication and having no evidence of stroke on MRI, the patient is likely suffering from Parkinson's disease that was acutely worsened secondary to not taking her medications as prescribed. We will adjust her Sinemet dose and monitor her response. 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 Case was reviewed and discussed with attending physician, Dr. Boothe
[2018-09-13] MEDS: Dextrose 5%/0.45% NS 1,000 ML IV SCH ×3 (03:43→11:48)
[2018-09-13] MEDS ORDERED: Carbidopa/Levodopa 25/100 CR PO SCH (07:00)
[2018-09-13 07:36] LABS: BASO % 0.7 % (0.0-2.0); EOS # 0.1 K/uL (0.0-0.7); EOS % 1.5 % (0.0-4.0); LYMPH # 1.3 K/uL (1.0-4.3); LYMPH % 20.7 % (20.0-40.0); MEAN CELL VOLUME 90.4 fL (81.0-99.0); MEAN CORPUSCULAR HEMOGLOBIN 30.9 pg (27.0-31.0); MEAN CORPUSCULAR HGB CONC 34.2 g/dL (33.0-37.0); MEAN PLATELET VOLUME 7.2 fL (7.2-11.7); MONO # 0.5 K/uL (0.0-0.8); MONO % 7.7 % (0.0-10.0); NEUT # 4.3 K/uL (1.8-7.0); NEUT % 69.4 % (50.0-75.0); NRBC % 0.1 % (0.0-2.0); RBC 4.21 Mil/uL (3.80-5.20); RED CELL DISTRIBUTION WIDTH 13.7 % (11.5-14.5); WHITE BLOOD COUNT 6.2 K/uL (4.8-10.8)
[2018-09-13 07:51] LABS: ALB/GLOB RATIO 1.3 (1.0-2.1); ALBUMIN 3.5 g/dL (3.5-5.0); ALT/SGPT 16 U/L (9-52); AST/SGOT 33 U/L (14-36); BLOOD UREA NITROGEN 8 mg/dL (7-17); CALCIUM 8.7 mg/dl (8.6-10.4); GFR NON-AFRICAN AMERICAN > 60
[2018-09-13 08:18] VITALS: PULSE 61
[2018-09-13 08:30] VITALS: BP 150/84; TEMP 98; O2SAT 97
--- NOTE | 2018-09-13 11:27 | CP.PCM.DIS ---
Provider - Provider Date of Admission: 09/11/18 00:34 Attending physician: Jose Mohan Jr, MD Consults: 09/10/18 22:20 Stroke Team Consult Stat Comment: Consulting Provider: Neurohospitalist Consulting Physician: NEUROHOSP Neurohospitalist for Consult: Dane Forman Neurohospitalist for Consult: Pieter Boothe Reason for Consult: cva Time Spent in preparation of Discharge (in minutes): 45 Diagnosis - Discharge Diagnosis (1) Parkinson disease Status: Acute (2) HTN (hypertension) Status: Acute (3) Dementia Status: Chronic Priority: Medium Hospital Course - Lab Results Lab Results: Most Recent Lab Values WBC 6.2 K/uL (4.8-10.8) 09/13/18 07:15 RBC 4.21 Mil/uL (3.80-5.20) 09/13/18 07:15 Hgb 13.0 g/dL (11.0-16.0) 09/13/18 07:15 Hct 38.1 % (34.0-47.0) 09/13/18 07:15 MCV 90.4 fL (81.0-99.0) 09/13/18 07:15 MCH 30.9 pg (27.0-31.0) 09/13/18 07:15 MCHC 34.2 g/dL (33.0-37.0) 09/13/18 07:15 RDW 13.7 % (11.5-14.5) 09/13/18 07:15 Plt Count 358 K/uL (130-400) 09/13/18 07:15 MPV 7.2 fL (7.2-11.7) 09/13/18 07:15 Neut % (Auto) 69.4 % (50.0-75.0) 09/13/18 07:15 Lymph % (Auto) 20.7 % (20.0-40.0) 09/13/18 07:15 Craven % (Auto) 7.7 % (0.0-10.0) 09/13/18 07:15 Eos % (Auto) 1.5 % (0.0-4.0) 09/13/18 07:15 Baso % (Auto) 0.7 % (0.0-2.0) 09/13/18 07:15 Neut # (Auto) 4.3 K/uL (1.8-7.0) 09/13/18 07:15 Lymph # (Auto) 1.3 K/uL (1.0-4.3) 09/13/18 07:15 Craven # (Auto) 0.5 K/uL (0.0-0.8) 09/13/18 07:15 Eos # (Auto) 0.1 K/uL (0.0-0.7) 09/13/18 07:15 Baso # (Auto) 0.0 K/uL (0.0-0.2) 09/13/18 07:15 Neutrophils % (Manual) 87 % (50-75) H 09/11/18 04:02 Lymphocytes % (Manual) 10 % (20-40) L 09/11/18 04:02 Monocytes % (Manual) 3 % (0-10) 09/11/18 04:02 Platelet Estimate Normal (NORMAL) 09/11/18 04:02 PT 13.1 SECONDS (9.7-12.2) H 09/10/18 22:26 INR 1.2 09/10/18 22:26 APTT 32 SECONDS (21-34) 09/10/18 22:26 Sodium 135 mmol/L (132-148) 09/13/18 07:15 Potassium 3.6 mmol/L (3.6-5.2) 09/13/18 07:15 Chloride 103 mmol/L (98-107) 09/13/18 07:15 Carbon Dioxide 26 mmol/L (22-30) 09/13/18 07:15 Anion Gap 10 (10-20) 09/13/18 07:15 BUN 8 mg/dL (7-17) 09/13/18 07:15 Creatinine 0.5 mg/dL (0.7-1.2) L 09/13/18 07:15 Est GFR ( Amer) > 60 09/13/18 07:15 Est GFR (Non-Af Amer) > 60 09/13/18 07:15 POC Glucose (mg/dL) 110 mg/dL (65-110) 09/13/18 06:29 Random Glucose 117 mg/dL (65-105) H 09/13/18 07:15 Hemoglobin A1c 6.0 % (4.2-6.5) 09/11/18 11:49 Calcium 8.7 mg/dl (8.6-10.4) 09/13/18 07:15 Phosphorus 3.6 mg/dL (2.5-4.5) 09/13/18 07:15 Magnesium 2.2 mg/dL (1.6-2.3) 09/13/18 07:15 Total Bilirubin 0.3 mg/dL (0.2-1.3) 09/13/18 07:15 AST 33 U/L (14-36) 09/13/18 07:15 ALT 16 U/L (9-52) 09/13/18 07:15 Alkaline Phosphatase 70 U/L (38-126) 09/13/18 07:15 Troponin I < 0.0120 ng/mL (0.00-0.120) 09/10/18 22:26 Total Protein 6.1 g/dL (6.3-8.3) L 09/13/18 07:15 Albumin 3.5 g/dL (3.5-5.0) 09/13/18 07:15 Globulin 2.6 gm/dL (2.2-3.9) 09/13/18 07:15 Albumin/Globulin Ratio 1.3 (1.0-2.1) 09/13/18 07:15 Triglycerides 77 mg/dL (0-149) D 09/11/18 11:49 Cholesterol 133 mg/dL (0-199) 09/11/18 11:49 LDL Cholesterol Direct 75 mg/dL (0-129) 09/11/18 11:49 HDL Cholesterol 48 mg/dL (30-70) 09/11/18 11:49 Blood Type O NEGATIVE 09/10/18 22:26 Antibody Screen Negative 09/10/18 22:26 - Hospital Course Hospital Course: 73yo F PMH HTN, HLD, asthma, schizophrenia, anxiety, depression, NPH dementia admitted for sudden onset of slurred speech. Code Stroke called. Imaging negative, neuro on board, adjusting parkinson medication, speech eval: thin liquids , MRI CT CTA showed no acute changes, Dr Boothe Neuro consulted: recommeded resart sinemet and f/u outpt. 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, mild chronic microangiopathic changes, milld age related parenchymal volume loss - per neuro: unlikley stroke; more likely due to non compliance - Crestor 5mg po HS - ASA 300mg [place] daily - sinemet CR 3 tabs @ 7AM, 1 tab @ 1200 & 1600 Parkinson's disease - As per neuro, - sinemet CR 3 tabs @ 7AM, 1 tab @ 1200 & 1600 - Follow up neuro recs Dementia - home Cogentin 2mg po daily Hx of Schizophrenia HX Anxiety/Depression - Olanzapine 10mg po daily - Risperidone 2mg po daily - sertraline 100mg po daily HX of HTN - HCTZ 12.5mg po daily - continue to monitor BP PPx - DVT: SCDs - PT/OT- [facility] vs TCU Discharge Exam - Head Exam Head Exam: NORMAL INSPECTION - Additional Findings Additional findings: - Constitutional Appears: Non-toxic, No Acute Distress - Head Exam Head Exam: NORMAL INSPECTION - Eye Exam Eye Exam: Normal appearance - ENT Exam ENT Exam: Mucous Membranes Moist - Respiratory Exam Respiratory Exam: Clear to Ausculation Bilateral, NORMAL BREATHING PATTERN. absent: Rales, Rhonchi, Wheezes - Cardiovascular Exam Cardiovascular Exam: +S1, +S2. absent: Murmur - GI/Abdominal Exam GI & Abdominal Exam: Soft, Normal Bowel Sounds. absent: Firm, Guarding, Rigid - Extremities Exam Extremities Exam: Full ROM, Normal Inspection Additional comments: cogwheel rigidity, greater R > L - Back Exam Back Exam: absent: CVA tenderness (L), CVA tenderness (R) - Neurological Exam Neurological Exam: Alert, Awake, Oriented x3 - Psychiatric Exam Psychiatric exam: Normal Affect, Normal Mood - Skin Skin Exam: Dry, Intact, Normal Color, Warm Discharge Plan - Discharge Medications Prescriptions: Aspirin [Ecotrin] 81 mg PO DAILY #30 tabec Benztropine [Cogentin] 2 mg PO DAILY #30 tab Carbidopa/Levodopa 25/100 CR [Sinemet CR] 2 tab PO 0700 #30 tab OLANZapine [Zyprexa Zydis] 10 mg PO DAILY #30 odt risperiDONE [RisperDAL Tab] 2 mg PO DAILY #30 tab Simvastatin 10 mg PO DAILY #30 tablet - Follow Up Plan Condition: FAIR Disposition: HOME/ ROUTINE Instructions: Stroke (DC), Aphasia (DC), Aspirin, Benztropine, Carbidopa and Levodopa, Olanzapine, Risperidone, Simvastatin Additional Instructions: Please take the following medications as prescribed Aspirin [Ecotrin] 81 mg PO DAILY #30 tabec Benztropine [Cogentin] 2 mg PO DAILY #30 tab Carbidopa/Levodopa 25/100 CR [Sinemet CR] 2 tab PO 0700 #30 tab OLANZapine [Zyprexa Zydis] 10 mg PO DAILY #30 odt risperiDONE [RisperDAL Tab] 2 mg PO DAILY #30 tab Simvastatin 10 mg PO DAILY #30 tablet Please follow up with Dr Forman in office within 7 days Please follow up with Dr Mohan in office within 7 days Take care and be well Referrals: Dane Forman MD [Staff Provider] - Jose Mohan Jr., MD [Medical Doctor] -
[2018-09-13] MEDS ORDERED: Carbidopa/Levodopa 50/200 CR PO SCH (12:00)
== END 2018-09-13 14:58 | disposition home or self-care (01) | DRG 57 ==
LOC: C.ER 22:14 → C.9E 09-11 00:34 → C.5S 09-11 04:13
PROVIDERS: ADMIT Internal Medicine; ATTEND Internal Medicine
DX: G20 Parkinson's disease (principal); R47.01 Aphasia; F02.80 Dementia in other diseases classified elsewhere, unspecified severity, without behavioral disturbance, psychotic disturbance, mood disturbance, and anxiety; E78.5 Hyperlipidemia, unspecified; I10 Essential (primary) hypertension; J45.909 Unspecified asthma, uncomplicated; Z91.14 Patient's other noncompliance with medication regimen; G93.0 Cerebral cysts; F20.9 Schizophrenia, unspecified